=== PATIENT | male | born 1945 | race Caucasian/White ===

== ENCOUNTER → 2019-10-13 08:24 | Outpatient (BNVA) | payer OTHER, SELFPAY | PROVIDERS: Family Provider Internal Medicine; PCP Emergency Medicine Emergency Medical Services; Referring Provider Emergency Medicine Emergency Medical Services; Visit Provider Specialist | DX: G30.9 Alzheimer's disease, unspecified (principal); R29.90 Unspecified symptoms and signs involving the nervous system; F02.80 Dementia in other diseases classified elsewhere, unspecified severity, without behavioral disturbance, psychotic disturbance, mood disturbance, and anxiety; G80.9 Cerebral palsy, unspecified; Z86.73 Personal history of transient ischemic attack (TIA), and cerebral infarction without residual deficits; I65.23 Occlusion and stenosis of bilateral carotid arteries; R41.89 Other symptoms and signs involving cognitive functions and awareness; Z87.891 Personal history of nicotine dependence | CPT/HCPCS: 96116; 99204 ==

== ENCOUNTER 2019-11-24 08:31 | Outpatient (CLI) | payer OTHER, SELFPAY ==
--- NOTE | 2019-11-24 08:41 | USCV_ITS ---
JanRoss sosa Age: 74 Gender: M : 1945 Exam Date: 11/24/2019 09:23 Ordering Phys: Jose Bernardo DO Technologist: Jean Carlos Arias Exam Location: [facility] [place] Indication: SCREENING HISTORY: Diameter (cm) AP x Transverse x Length Velocity (cm/s) Waveform Prox Aorta: 1.71 x 2.51 x 55.50 Mid Aorta: 2.16 x 2.90 x 52.60 Distal Aorta: 3.04 x 3.13 x 46.10 Right Iliac Prox: 1.07 x 1.07 x 99.90 Left Iliac Prox: 0.83 x 1.16 x 90.50 Stent Prox Landing x x Aneurysmal Sac Max x x Lt Lat Sac Dim Rt Lat Sac Dim Stent Dist Landing x x Right Iliac Stent x x Left Iliac Stent x x Right Renal Art Left Renal Art FINDINGS: Moderate diffuse plaques in the abdominal aorta Fusiform aneurysm in the infrarenal segment of the aorta Normal Doppler flow velocities in the aorta and iliac arteries. 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
== END 2019-11-24 08:32 | disposition home or self-care (01) ==
LOC: US 08:33
PROVIDERS: Family Provider Emergency Medicine Emergency Medical Services; PCP Emergency Medicine Emergency Medical Services; Visit Provider Emergency Medicine Emergency Medical Services
DX: Z13.6 Encounter for screening for cardiovascular disorders (principal); I71.4 Abdominal aortic aneurysm, without rupture
CPT/HCPCS: 76706

== ENCOUNTER → 2020-01-06 14:31 | Outpatient (BNVA) | payer OTHER, SELFPAY | PROVIDERS: Family Provider Emergency Medicine Emergency Medical Services; PCP Emergency Medicine Emergency Medical Services; Visit Provider Specialist | DX: G30.9 Alzheimer's disease, unspecified (principal); F02.80 Dementia in other diseases classified elsewhere, unspecified severity, without behavioral disturbance, psychotic disturbance, mood disturbance, and anxiety; Z87.891 Personal history of nicotine dependence | CPT/HCPCS: 96116; 99213 ==

== ENCOUNTER 2020-12-12 13:16 | Emergency (ER) | payer OTHER, SELFPAY ==
[2020-12-12 13:33] VITALS: BP 126/71; PULSE 94; RESP 17; TEMP 37; O2SAT 97; BMI 25.8
[2020-12-12 13:47] VITALS: PULSE 74
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
--- NOTE | 2020-12-12 13:47 | ECG_ITS ---
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 Measurements Intervals [place] Rate: 74 P: ID: QRS: 16 QRSD: 77 T: 30 QT: 376 QTc: 419 Interpretive Statements ATRIAL FIBRILLATION MODERATE ST DEPRESSION [0.05+ mV ST DEPRESSION] Compared to ECG 05/20/2015 09:22:00 No significant changes Electronically Signed On 12-12-2020 20:10:45 CDT by Evan Conner M.D. [id number]
--- NOTE | 2020-12-12 13:47 | CT_ITS ---
WS: [id number] CT HEAD NONCONTRAST HISTORY: closed head injury TECHNIQUE: Contiguous axial imaging performed through the brain in 2.5 mm imaging. Bone and soft tiss ue windows. Sagittal and coronal reformats reviewed. All CT scans at [facility] use at ast one of these dose optimization techniques: automated exposure control; mA and/or kV adjustment pe r patient size (includes targeted exams where dose is matched to clinical indication); or iterative r econstruction. DLP: 877.89 mGy.cm COMPARISON: 05/19/2015 No acute intracranial hemorrhage, midline shift or mass effect. Moderate atrophy. Large LEFT frontal parietal infarct. Smaller infarct and volume loss in the posteri or RIGHT frontal lobe. Smaller infarct in the anterior frontal lobes bilaterally. Small bilateral inf arcts in the cerebellum, LEFT greater than RIGHT. Lacunar infarct in the LEFT external capsule. Ventricles: Normal size with no hydrocephalus. Paranasal sinuses: As visualized are clear. Mastoid air cells: Well pneumatized. Calvarium and scalp: Skull is intact with no soft tissue edema or swelling. CT/CT head wo con* [id number] IMPRESSION: 1. No acute intracranial hemorrhage or edema. 2. 

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
[2020-12-12 14:47] LABS: Basophils # 0.1 10^3/uL (0.0-0.1); Basophils % 0.7 %; Eosinophils # 0.4 10^3/uL (0.0-0.8); Eosinophils % 3.2 %; Hematocrit 43.7 % (42.0-52.0); Lymphocytes # 1.2 10^3/uL (0.8-4.8); Lymphocytes % 11.3 %; Mean Corpuscular Volume 96.9 fL (80-94); Mean Platelet Volume 11.6 fL (7.4-10.4); Monocytes # 0.8 10^3/uL (0.2-0.9); Monocytes % 7.2 %; Neutrophils # 8.46 10^3/uL (1.8-7.7); Neutrophils % 77.1 %; Nucleated Red Blood Cells % 0 %; Platelet Count 200 10^3/cmm (130-400); Red Blood Count 4.51 10^6/uL (4.1-5.3); Red Cell Distribution Width 14.6 % (12.1-15.1)
--- NOTE | 2020-12-12 15:09 | PC.PHAR ---
pt unable to verify medications-pts family states the pt has a nurse set up his medications-medications entered are meds that were on pts med list from [facility]-STILL WAITING FOR [facility] L[facility]
[2020-12-12 15:29] LABS: Alanine Aminotransferase 14 U/L (0-41); Albumin Level 4.3 g/dL (3.5-5.2); Alkaline Phosphatase 69 IU/L (40-130); Blood Urea Nitrogen 18 mg/dL (8-23); Carbon Dioxide 24 mmol/L (22-29); Chloride 106 mmol/L (98-107); Globulin 3.3 g/dL (1.3-4.6); Glucose 125 mg/dL (65-115); Osmolality Calculated 295 mOsm/kg (285-295); Sodium 141 mmol/L (136-145); Total Bilirubin 0.4 mg/dL (0.15-1.2); Total Protein 7.6 g/dL (6.6-8.7)
[2020-12-12 15:50] LABS: Anion Gap 15.3 (5-19); Aspartate Amino Transferase 23 U/L (0-40); Potassium 4.3 mmol/L (3.5-5.1)
[2020-12-12] MEDS: iohexol 300 mg/mL 100 mL Btl IV (15:54)
[2020-12-12 16:01] LABS: INR 1.23 (0.8-1.2)
[2020-12-12 16:41] VITALS: BP 118/90; PULSE 69; RESP 21; O2SAT 96
[2020-12-12 16:51] LABS: Add Urine Microscopic? NO; Charge for UA Resulting for Rev
[2020-12-12 17:00] LABS: Bilirubin Urine Neg (Negative); Blood Urine Neg (Negative); Glucose Urine UA Norm (Normal); Ketones Urine Negative (Negative); Leukocyte Esterase Urine Negative (Negative); Nitrate Urine Negative (Negative); Protein Urine Neg (Negative); Urine Appearance Clear (CLEAR); Urine Color Yellow (Yellow); Urobilinogen Urine Norm (Negative); pH Urine 7 (5-7)
[2020-12-12 18:00] VITALS: BP 128/78; PULSE 68; RESP 24; O2SAT 98
[2020-12-12 18:02] VITALS: BP 128/78; PULSE 68; RESP 24; O2SAT 98
--- NOTE | 2020-12-13 08:48 | DCPLANNER ---
manager wind had message to schedule a follow up appointment for patient with ENT, Dr. Courtney. Patient has [facility] insurance, upper caser called the office of Dr. Courtney to confirm if physician was in network with [facility]. manager wind was told that patient is not in network with the [facility] at this time. manager wind called patient, and spoke with his sister. manager wind asked if patient had another insurance that he would like to use, and see Dr. Courtney, or use his VA insurance and see Dr. Holley. manager wind was told that patient wants to use his VA and see Dr. Holley. manager wind called the office of Dr. Holley, faxed patients information to the office of Dr. Holley. A follow up appointment was scheduled for today Sunday, December 13, 2020 at 1:40. manager wind called and informed patients sister of the scheduled appointment. manager wind also sent patients information over a secure email to Lucie with [facility], so that authorization process could be started.
--- NOTE | 2020-12-13 11:10 | DCPLANNER ---
wireless construction manager also had message to schedule a follow up appointment for patient with Dr. Lopez, at [facility] for pulmonlogy. wireless construction manager called [facility], spoke with Lesly, gave clinic patients information. A follow up appointment was scheduled for Saturday, December 19, 2020 at 8:[address] Lopez. wireless construction manager called patients sister, gave her the appointment information. wireless construction manager also emailed patients information to December with [facility].
--- NOTE | 2020-12-14 15:23 | DCPLANNER ---
Patient had a follow up appointment scheduled for 12.13.[address] Holley - patient did attend appointment.
--- NOTE | 2020-12-27 15:20 | DCPLANNER ---
Patient had a follow up appointment scheduled for 12.19.20 with [facility] with lawrence Jalloh - patient did attend appointment.
== END 2020-12-12 18:03 | disposition home or self-care (01) ==
PROVIDERS: Emergency Provider Family Medicine; PCP Emergency Medicine Emergency Medical Services
DX: S10.93XA Contusion of unspecified part of neck, initial encounter (principal); Z79.01 Long term (current) use of anticoagulants; I10 Essential (primary) hypertension; E78.5 Hyperlipidemia, unspecified; Z87.891 Personal history of nicotine dependence; V89.2XXA Person injured in unspecified motor-vehicle accident, traffic, initial encounter
CPT/HCPCS: 36415; 70450; 70491; 71045; 72125; 80053; 81003; 85025; 85610; 93005; 99284; Q9967

== ENCOUNTER → 2020-12-21 13:27 | Outpatient (BNVA) | payer OTHER, SELFPAY | PROVIDERS: PCP Emergency Medicine Emergency Medical Services; Visit Provider Specialist | DX: G30.9 Alzheimer's disease, unspecified (principal); F02.80 Dementia in other diseases classified elsewhere, unspecified severity, without behavioral disturbance, psychotic disturbance, mood disturbance, and anxiety; Z87.891 Personal history of nicotine dependence | CPT/HCPCS: 99214 ==

== ENCOUNTER 2020-12-26 14:22 | Outpatient (CLI) | payer OTHER, SELFPAY ==
--- NOTE | 2020-12-26 15:00 | CT_ITS ---
WS: [id number] Exam: CT chest wo con [id number] Date/Time of Exam: 12/26/2020 2:49 PM Reason For Exam: Hilar lymphadenopathy DLP: 897.[address] scans at [facility] use at least one of these dose optimization techniques: automat ed exposure control; mA and/or kV adjustment per patient size (includes targeted exams where dose is matched to clinical indication); or iterative reconstruction. The lungs are fully expanded. There is hyperinflation with emphysematous changes noted. Mild infiltra te in the superior segment of the right lower lobe which may represent pneumonia or chronic change. T he airway is patent. 6.6 mm noncalcified pleural-based nodule in the posterior basal segment of the r ight lower lobe. There are several mildly prominent mediastinal lymph nodes. The largest measuring ab out 1.1 cm at greatest short axis dimension. There is also an enlarged right subpectoral lymph node m easuring 1 cm greatest short axis dimension. No axillary lymphadenopathy is seen. The thoracic aorta is not dilated. Triple vessel coronary artery calcification noted. No pleural or pericardial effusion seen. Large hiatal hernia. CT sections of the upper abdomen demonstrate no lymphadenopathy or mass. No destructive bone lesions are seen. Normal adrenal glands. No destructive bone lesions are chest wa ll defects. CT/CT chest wo con [id number] IMPRESSION: 1. Mild mediastinal and right subpectoral lymphadenopathy. The largest nodes me asure slightly over 1 cm greatest short axis dimension. 2. Mild infiltrate in the superior segment of the right lower lobe that may rep resent pneumonia or chronic change. 3. Pulmonary hyperinflation and emphysematous changes. 4. 6.6 mm noncalcified pleural-based nodule in the posterior basal segment of t he right lower lobe. Six-month follow-up might be considered for surveillance. 5. Large hiatal hernia.
== END 2020-12-26 14:23 | disposition home or self-care (01) ==
PROVIDERS: PCP Emergency Medicine Emergency Medical Services; Visit Provider Internal Medicine Critical Care Medicine
DX: R59.0 Localized enlarged lymph nodes (principal); K44.9 Diaphragmatic hernia without obstruction or gangrene; R91.1 Solitary pulmonary nodule; R91.8 Other nonspecific abnormal finding of lung field
CPT/HCPCS: 71250

== ENCOUNTER → 2021-06-19 10:48 | Outpatient (BNVA) | payer OTHER, SELFPAY | PROVIDERS: PCP Emergency Medicine Emergency Medical Services; Visit Provider Specialist | DX: G30.9 Alzheimer's disease, unspecified (principal); F02.80 Dementia in other diseases classified elsewhere, unspecified severity, without behavioral disturbance, psychotic disturbance, mood disturbance, and anxiety; F81.9 Developmental disorder of scholastic skills, unspecified; G80.9 Cerebral palsy, unspecified; Z87.891 Personal history of nicotine dependence | CPT/HCPCS: 99213 ==

== ENCOUNTER 2021-11-09 09:11 | Outpatient (CLI) | payer OTHER, SELFPAY ==
--- NOTE | 2021-11-09 09:33 | USCV_ITS ---
Ross Montoya Age: 76 Gender: M : 1945 Exam Date: 11/09/2021 09:59 Ordering Phys: Jose Bernardo DO Technologist: Erik Nolasco [place] [facility] [place]: AAA HISTORY: Diameter (cm) AP x Transverse x Length Velocity (cm/s) Waveform Prox Aorta: 2.32 x 2.29 x 75.20 Mid Aorta: 2.57 x 2.74 x 71.90 Distal Aorta: 3.01 x 3.29 x 43.00 Right Iliac Prox: 0.65 x 0.97 x 198.20 Left Iliac Prox: 0.75 x 0.87 x 137.20 Stent Prox Landing x x Aneurysmal Sac Max x x Lt Lat Sac Dim Rt Lat Sac Dim Stent Dist Landing x x Right Iliac Stent x x Left Iliac Stent x x Right Renal Art Left Renal Art FINDINGS: Comparison:. 11/24/19. A fusiform abdominal aortic aneurysm is noted with a maximal diameter of 3.3 cm. Minimal increase in size as compared to the prior exam. There are no findings to suggest ruthere is no evidence of a right common iliac artery aneurysm. There is no evidence of a left common iliac artery aneurysm. pture of the abdominal aortic aneurysm. Mild atherosclerosis. CONCLUSIONS AAA with minimal progression by 2 mm since the prior exam. Dr. Mnadi Jacobs DO (Electronically Signed) Final Date: 09 November 2021 10:30 S
== END 2021-11-09 09:12 | disposition home or self-care (01) ==
LOC: RAD 09:19
PROVIDERS: PCP Emergency Medicine Emergency Medical Services; Visit Provider Emergency Medicine Emergency Medical Services
DX: I71.4 Abdominal aortic aneurysm, without rupture (principal)
CPT/HCPCS: 93978

== ENCOUNTER → 2022-03-19 09:42 | Outpatient (BNVA) | payer OTHER, SELFPAY | PROVIDERS: PCP Emergency Medicine Emergency Medical Services; Visit Provider Internal Medicine Critical Care Medicine | DX: J44.9 Chronic obstructive pulmonary disease, unspecified (principal); R59.0 Localized enlarged lymph nodes; R91.1 Solitary pulmonary nodule; G30.9 Alzheimer's disease, unspecified; F02.80 Dementia in other diseases classified elsewhere, unspecified severity, without behavioral disturbance, psychotic disturbance, mood disturbance, and anxiety; Z87.891 Personal history of nicotine dependence; Z79.01 Long term (current) use of anticoagulants | CPT/HCPCS: 99214 ==

== ENCOUNTER → 2022-06-18 10:57 | Outpatient (BNVA) | payer OTHER, SELFPAY | PROVIDERS: PCP Emergency Medicine Emergency Medical Services; Visit Provider Specialist | DX: G30.9 Alzheimer's disease, unspecified (principal); F02.80 Dementia in other diseases classified elsewhere, unspecified severity, without behavioral disturbance, psychotic disturbance, mood disturbance, and anxiety | CPT/HCPCS: 99213 ==

== ENCOUNTER → 2022-07-10 10:01 | Outpatient (BNVA) | payer OTHER, SELFPAY | PROVIDERS: PCP Emergency Medicine Emergency Medical Services; Visit Provider Internal Medicine Cardiovascular Disease | DX: I48.91 Unspecified atrial fibrillation (principal); Z79.01 Long term (current) use of anticoagulants; J44.9 Chronic obstructive pulmonary disease, unspecified; E78.2 Mixed hyperlipidemia; I10 Essential (primary) hypertension; Z86.73 Personal history of transient ischemic attack (TIA), and cerebral infarction without residual deficits; I65.23 Occlusion and stenosis of bilateral carotid arteries; I71.30 Abdominal aortic aneurysm, ruptured, unspecified; Z87.891 Personal history of nicotine dependence | CPT/HCPCS: 93005; 99214 ==

== ENCOUNTER → 2022-09-27 13:54 | Outpatient (BNVA) | payer OTHER, SELFPAY | PROVIDERS: PCP Emergency Medicine Emergency Medical Services; Referring Provider Emergency Medicine Emergency Medical Services; Visit Provider Dermatology | DX: D48.9 Neoplasm of uncertain behavior, unspecified (principal) | CPT/HCPCS: 88305 ==

== ENCOUNTER → 2022-12-17 10:26 | Outpatient (BNVA) | payer OTHER, SELFPAY | PROVIDERS: PCP Emergency Medicine Emergency Medical Services; Visit Provider Internal Medicine Pulmonary Disease | DX: J44.9 Chronic obstructive pulmonary disease, unspecified (principal); R59.0 Localized enlarged lymph nodes; R91.1 Solitary pulmonary nodule; G30.9 Alzheimer's disease, unspecified; F02.80 Dementia in other diseases classified elsewhere, unspecified severity, without behavioral disturbance, psychotic disturbance, mood disturbance, and anxiety; Z87.891 Personal history of nicotine dependence | CPT/HCPCS: 99214 ==

== ENCOUNTER 2023-01-02 13:39 | Outpatient (CLI) | payer OTHER, SELFPAY ==
--- NOTE | 2023-01-02 13:30 | CTR_ITS ---
PROCEDURE INFORMATION: Exam: CT Chest Without Contrast; Diagnostic Exam date and time: 01/02/2023 1:51 PM Age: 77 years old Clinical indication: Condition or disease; Lung condition and disease; Pulmonary nodule, solitary; Additional info: Follow up lung nodule, CT chest to follow-up on lung nodule TECHNIQUE: Imaging protocol: Diagnostic computed tomography of the chest without contrast. Radiation optimization: All CT scans at this facility use at least one of these dose optimization techniques: automated exposure control; mA and/or kV adjustment per patient size (includes targeted exams where dose is matched to clinical indication); or iterative reconstruction. REPORTING DATA: Count of CT and Cardiac NM exams in prior 12 months: This patient has received 0 known CTs and 0 known cardiac nuclear medicine studies in the 12 months prior to the current study. COMPARISON: CT chest wo con [id number] 12/26/2020 3:00 PM RADIATION DOSE METRICS: Total DLP (mGy-cm): 236.65 FINDINGS: Lungs: COPD with diffuse emphysematous changes. There are scattered small circumscribed noncalcified pulmonary nodules measuring up to 6 mm stable from previous exam. There are no new nodules detected. There are mild interstitial changes consisting of subpleural reticulation without significant architectural distortion or honeycombing relatively stable that may be due to idiopathic interstitial lung disease (NSIP). Pleural spaces: Unremarkable. No pneumothorax. No pleural effusion. Heart: Heart is mildly enlarged and appears slightly increased in size from previous exam. Extensive calcification of coronary arteries. No significant pericardial effusion. Lymph nodes: Mild mediastinal lymphadenopathy relatively stable from previous exam, likely benign. Vasculature: Unremarkable. No aortic aneurysm. Diaphragm: There is a large size hiatal hernia, unchanged. Bones/joints: Moderate degenerative changes throughout the mid lower thoracic spine. No acute bony abnormalities. Soft tissues: Unremarkable. CT/CT chest wo con [id number] IMPRESSION: 1. Stable small pulmonary nodules measuring up to 6 mm consistent with benign etiology. No new nodules appreciated. 2. Mild mediastinal lymphadenopathy unchanged and likely benign in nature. 3. COPD with mild chronic interstitial lung changes suggestive of NSIP, stable. 4. Mild cardiomegaly with diffuse calcification of coronary arteries. 5. Large hiatal hernia unchanged. COMMENTS: In the absence of a history or active diagnosis of lung cancer, it is recommended that this patient with emphysema be evaluated for enrollment in a low dose CT lung cancer screening program.
== END 2023-01-02 13:40 | disposition home or self-care (01) ==
LOC: RAD 13:42
PROVIDERS: PCP Emergency Medicine Emergency Medical Services; Visit Provider Internal Medicine Pulmonary Disease
DX: J44.9 Chronic obstructive pulmonary disease, unspecified (principal); R91.1 Solitary pulmonary nodule; I51.7 Cardiomegaly; K44.9 Diaphragmatic hernia without obstruction or gangrene
CPT/HCPCS: 71250

== ENCOUNTER → 2023-01-22 09:53 | Outpatient (BNVA) | payer OTHER, SELFPAY | PROVIDERS: PCP Emergency Medicine Emergency Medical Services; Visit Provider Internal Medicine Cardiovascular Disease | DX: I48.91 Unspecified atrial fibrillation (principal); I10 Essential (primary) hypertension; G30.9 Alzheimer's disease, unspecified; E78.2 Mixed hyperlipidemia; Z86.73 Personal history of transient ischemic attack (TIA), and cerebral infarction without residual deficits; I71.40 Abdominal aortic aneurysm, without rupture, unspecified; Z87.891 Personal history of nicotine dependence | CPT/HCPCS: 36415; 80048; 85025; 99214 ==

== ENCOUNTER 2023-02-06 12:11 | Emergency (ER) | payer OTHER, SELFPAY ==
[2023-02-06 12:17] VITALS: BP 142/78; PULSE 87; RESP 17; TEMP 37; O2SAT 95; BMI 29.2
--- NOTE | 2023-02-06 12:26 | XRR_ITS ---
PROCEDURE INFORMATION: Exam: XR Lumbosacral Spine Exam date and time: 02/06/2023 12:55 PM Age: 78 years old Clinical indication: Injury or trauma; Fall; Blunt trauma (contusions or hematomas) TECHNIQUE: Imaging protocol: Radiologic exam of the lumbosacral spine. Views: 2 or 3 views. COMPARISON: No relevant prior studies available. FINDINGS: Bones/joints: Osteopenia and osteoarthritis is seen. No acute fracture. Normal alignment. Soft tissues: Unremarkable XR/XR lumbar spine 2-3V* [id number] IMPRESSION: 1. No acute findings. 2. Osteopenia and osteoarthritis
--- NOTE | 2023-02-06 12:26 | XRR_ITS ---
PROCEDURE INFORMATION: Exam: XR Right Ribs with PA Chest Exam date and time: 02/06/2023 12:55 PM Age: 78 years old Clinical indication: Injury or trauma; Fall; Rib area; Blunt trauma (contusions or hematomas) TECHNIQUE: Imaging protocol: Radiologic exam of the right ribs with PA chest. Views: 3 views COMPARISON: CT chest con [id number] 01/02/2023 1:51 PM FINDINGS: Lungs: Unremarkable. No consolidation. Pleural spaces: Unremarkable. No pleural effusion. No pneumothorax. Heart/Mediastinum: Unremarkable. No cardiomegaly. Bones/joints: Unremarkable. XR/XR ribs RT mn 3V w CXR1V [id number] IMPRESSION: No acute findings.
--- NOTE | 2023-02-06 12:26 | XRR_ITS ---
PROCEDURE INFORMATION: Exam: XR Thoracic Spine Exam date and time: 02/06/2023 12:55 PM Age: 78 years old Clinical indication: Injury or trauma; Fall; Blunt trauma (contusions or hematomas) TECHNIQUE: Imaging protocol: Radiologic exam of the thoracic spine. Views: 3 views. COMPARISON: CT chest wo con [id number] 01/02/2023 1:51 PM FINDINGS: Bones/joints: Generalized osteoarthritis and osteopenia is seen. There is decreased vertebral height involving the T11 and T12 vertebral bodies consistent with compression fractures. No acute fracture. Normal alignment. Soft tissues: Unremarkable. XR/XR thoracic spine 3V* [id number] IMPRESSION: 1. Osteopenia and osteoarthritis 2. Compression fractures T11 and T12 vertebral bodies 3. Otherwise No acute findings.
[2023-02-06 12:42] LABS: Basophils % 0.4 %; Eosinophils # 0.2 10^3/uL (0.0-0.8); Eosinophils % 1.5 %; Hematocrit 44.1 % (42.0-52.0); Hemoglobin 14.3 g/dL (11.7-16.6); Lymphocytes # 2.2 10^3/uL (0.8-4.8); Mean Corpuscular HGB Conc 32.4 g/dL (30.0-36.0); Mean Corpuscular Hemoglobin 32.7 pg (28.0-34.0); Mean Corpuscular Volume 100.9 fl (80-94); Mean Platelet Volume 11.1 fL (7.4-10.4); Monocytes % 9.2 %; Neutrophils # 7.06 10^3/uL (1.8-7.7); Neutrophils % 67.5 %; Nucleated Red Blood Cells % 0 %; Platelet Count 183 10^3/cmm (130-400); Red Blood Count 4.37 10^6/uL (4.1-5.3); Red Cell Distribution Width 12.7 % (12.1-15.1); White Blood Count 10.5 10^3/uL (4.0-10.0)
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
[2023-02-06 13:02] LABS: Anion Gap 17.6 (5-19); Blood Urea Nitrogen 12 mg/dL (8-23); Calcium 9.6 mg/dL (8.5-10.5); Carbon Dioxide 23 mmol/L (22-29); Chloride 103 mmol/L (98-107); Glucose 124 mg/dL (65-115); Osmolality Calculated 291 mOsm/kg (285-295); Potassium 3.6 mmol/L (3.5-5.1); Sodium 140 mmol/L (136-145)
[2023-02-06 14:33] VITALS: BP 119/83; PULSE 67; RESP 16; O2SAT 98
--- NOTE | 2023-02-06 15:41 | DCPLANNER ---
Addendum entered by Liliana Yu 02/08/23 10:20: Patient had a follow up appointment scheduled with ortho - patient did attend appointment. Addendum entered by Liliana Yu 02/07/23 11:19: managing manager received the following message from the ortho clinic regarding follow up appointment: attempt made to contact patient - left vm and mailed letter to call our clinic to schedule - have sent a msg to nancy VALDES to f/u on auth Original Note: managing manager had message to schedule a follow up appointment for patient with ortho. managing manager sent patients information the front office staff at ortho. Patients information will be printed and reviewed. Clinic will call patient with appointment information.
== END 2023-02-06 14:34 | disposition home or self-care (01) ==
PROVIDERS: Emergency Provider Family Medicine; PCP Emergency Medicine Emergency Medical Services
DX: S22.080A Wedge compression fracture of T11-T12 vertebra, initial encounter for closed fracture (principal); Z87.891 Personal history of nicotine dependence; Z86.73 Personal history of transient ischemic attack (TIA), and cerebral infarction without residual deficits; I10 Essential (primary) hypertension; E78.5 Hyperlipidemia, unspecified; F03.90 Unspecified dementia, unspecified severity, without behavioral disturbance, psychotic disturbance, mood disturbance, and anxiety; W19.XXXA Unspecified fall, initial encounter
CPT/HCPCS: 36415; 71101; 72072; 72100; 80048; 85025; 99283

== ENCOUNTER → 2023-02-07 15:15 | Outpatient (BNVA) | payer OTHER, SELFPAY | PROVIDERS: PCP Emergency Medicine Emergency Medical Services; Visit Provider Physician Assistant | DX: S22.000A Wedge compression fracture of unspecified thoracic vertebra, initial encounter for closed fracture (principal); W19.XXXA Unspecified fall, initial encounter | CPT/HCPCS: 99203 ==

== ENCOUNTER 2023-02-07 16:24 | Outpatient (CLI) | payer OTHER, SELFPAY | END 2023-02-07 16:25 | disposition home or self-care (01) | LOC: SPT 16:25 | PROVIDERS: PCP Emergency Medicine Emergency Medical Services; Visit Provider Physician Assistant | DX: Z46.89 Encounter for fitting and adjustment of other specified devices (principal); S22.000D Wedge compression fracture of unspecified thoracic vertebra, subsequent encounter for fracture with routine healing; X58.XXXD Exposure to other specified factors, subsequent encounter | CPT/HCPCS: 97760; L0456 ==

== ENCOUNTER 2023-02-11 09:07 | Outpatient (CLI) | payer OTHER, SELFPAY ==
--- NOTE | 2023-02-11 09:15 | USCV_ITS ---
Ross Montoya Age: 78 Gender: M : 1945 Exam Date: 02/11/2023 09:29 Ordering Phys: Phill Perez MD ([email or web address]) Technologist: Erik Nolasco Exam Location: [facility] [place] Indication: AAA HISTORY: Diameter (cm) AP x Transverse x Length Velocity (cm/s) Waveform Prox Aorta: 2.46 x 2.12 x 69.40 Mid Aorta: 2.75 x 2.93 x 44.30 Distal Aorta: 3.14 x 3.17 x 25.50 Right Iliac Prox: 0.86 x 1.18 x 171.90 Left Iliac Prox: 0.97 x 1.16 x 100.00 Stent Prox Landing x x Aneurysmal Sac Max x x Lt Lat Sac Dim Rt Lat Sac Dim Stent Dist Landing x x Right Iliac Stent x x Left Iliac Stent x x Right Renal Art Left Renal Art FINDINGS: Comparison:. 11/09/21. A fusiform abdominal aortic aneurysm is noted with a maximal diameter of 3.2 cm. No evidence of periaortic fluid is detected. Stable, non progression. Atherosclerotic plaque is noted in the abdominal aorta. There is evidence of atherosclerotic plaque no significan stenosis in the right common iliac artery. There is evidence of atherosclerotic plaque no significan stenosis in the left common iliac artery. CONCLUSIONS Stable 3.2 cm AAA, since 11/09/21. Dr. Mandi Jacobs DO (Electronically Signed) Final Date: 11 February 2023 10:10 S
== END 2023-02-11 09:08 | disposition home or self-care (01) ==
LOC: RAD 09:08
PROVIDERS: PCP Emergency Medicine Emergency Medical Services; Visit Provider Internal Medicine Cardiovascular Disease
DX: I71.40 Abdominal aortic aneurysm, without rupture, unspecified (principal); I10 Essential (primary) hypertension
CPT/HCPCS: 36415; 80048; 85025; 93978

== ENCOUNTER 2023-03-20 07:56 | Outpatient (CLI) | payer OTHER, SELFPAY ==
--- NOTE | 2023-03-20 08:00 | NM_ITS ---
WS: [id number] NUCLEAR MEDICINE BONE SCAN Radiopharmaceutical: 24.0 Tc-99m MDP mCi IV Injection site: Antecubital Postinjection imaging delay: 1 hr CLINICAL INFORMATION: S22.000A - Wedge compression fracture of unspecified thor... COMPARISON: None. FINDINGS: Bone lesions: Punctate areas of radiotracer uptake in the RIGHT posterior 8th and 9th ribs. Tiny amou nt of radiotracer uptake in the adjacent 8th and 9th pedicles. Additional punctate focus of radiotrac er uptake in an anterior mid rib. Findings likely due to healing rib fractures. Findings not typical for metastatic disease. Mild thoracolumbar curve. Soft tissue contours: Normal. Kidneys: Radiotracer uptake in a presumed small RIGHT renal cyst. Other findings: Degenerative type uptake in both AC joints. NM/NM bone scan whole body* [id number] IMPRESSION: 1. No focal uptake in the T11 or T12 vertebral bodies in the area of previousl y described compression. 2. Punctate activity involving the RIGHT posterior 8th and 9th ribs with punct ate activity in the adjacent pedicles likely due to trauma and healing rib frac tures. 3. No other suspicious findings.
== END 2023-03-20 07:57 | disposition home or self-care (01) ==
LOC: RAD 07:57
PROVIDERS: PCP Emergency Medicine Emergency Medical Services; Visit Provider Orthopaedic Surgery
DX: S22.000A Wedge compression fracture of unspecified thoracic vertebra, initial encounter for closed fracture (principal); X58.XXXA Exposure to other specified factors, initial encounter
CPT/HCPCS: 78306; A9561

== ENCOUNTER → 2023-04-11 08:52 | Outpatient (BNVA) | payer OTHER, SELFPAY | PROVIDERS: PCP Emergency Medicine Emergency Medical Services; Visit Provider Orthopaedic Surgery | DX: S22.49XA Multiple fractures of ribs, unspecified side, initial encounter for closed fracture (principal); X58.XXXA Exposure to other specified factors, initial encounter | CPT/HCPCS: 99213 ==

== ENCOUNTER → 2023-05-15 09:52 | Outpatient (BNVA) | payer OTHER, SELFPAY | PROVIDERS: PCP Emergency Medicine Emergency Medical Services; Visit Provider Podiatrist Foot & Ankle Surgery | DX: L60.3 Nail dystrophy; L84 Corns and callosities; M20.41 Other hammer toe(s) (acquired), right foot; M20.42 Other hammer toe(s) (acquired), left foot; M21.611 Bunion of right foot; M21.612 Bunion of left foot; I73.9 Peripheral vascular disease, unspecified | CPT/HCPCS: 11056; 11721; 99204 ==

== ENCOUNTER → 2023-06-10 13:14 | Outpatient (BNVA) | payer OTHER, SELFPAY | PROVIDERS: PCP Emergency Medicine Emergency Medical Services; Visit Provider Dermatology | DX: D48.5 Neoplasm of uncertain behavior of skin (principal); L81.4 Other melanin hyperpigmentation; L57.0 Actinic keratosis; L82.1 Other seborrheic keratosis; L57.8 Other skin changes due to chronic exposure to nonionizing radiation; L98.8 Other specified disorders of the skin and subcutaneous tissue | CPT/HCPCS: 17000; 69100; 99213 ==

== ENCOUNTER → 2023-06-18 10:11 | Outpatient (BNVA) | payer OTHER, SELFPAY | PROVIDERS: PCP Emergency Medicine Emergency Medical Services; Visit Provider Specialist | DX: G30.9 Alzheimer's disease, unspecified (principal); F02.80 Dementia in other diseases classified elsewhere, unspecified severity, without behavioral disturbance, psychotic disturbance, mood disturbance, and anxiety | CPT/HCPCS: 99213 ==

== ENCOUNTER → 2023-07-17 12:40 | Outpatient (BNVA) | payer OTHER, SELFPAY | PROVIDERS: PCP Emergency Medicine Emergency Medical Services; Visit Provider Podiatrist Foot & Ankle Surgery | DX: L60.3 Nail dystrophy (principal); M20.41 Other hammer toe(s) (acquired), right foot; M20.42 Other hammer toe(s) (acquired), left foot; M21.611 Bunion of right foot; M21.612 Bunion of left foot; I73.9 Peripheral vascular disease, unspecified; Q82.8 Other specified congenital malformations of skin | CPT/HCPCS: 11721; 17110 ==

== ENCOUNTER → 2023-08-06 11:06 | Outpatient (BNVA) | payer OTHER, SELFPAY | PROVIDERS: PCP Emergency Medicine Emergency Medical Services; Visit Provider Internal Medicine Cardiovascular Disease | DX: I71.33 Infrarenal abdominal aortic aneurysm, ruptured (principal); I48.11 Longstanding persistent atrial fibrillation; I65.23 Occlusion and stenosis of bilateral carotid arteries; E78.2 Mixed hyperlipidemia; I10 Essential (primary) hypertension; G30.9 Alzheimer's disease, unspecified; F02.80 Dementia in other diseases classified elsewhere, unspecified severity, without behavioral disturbance, psychotic disturbance, mood disturbance, and anxiety; Z87.891 Personal history of nicotine dependence; Z79.01 Long term (current) use of anticoagulants | CPT/HCPCS: 99214 ==

== ENCOUNTER 2023-08-20 08:56 | Outpatient (CLI) | payer OTHER, SELFPAY ==
--- NOTE | 2023-08-20 09:15 | USCV_ITS ---
Ross Montoya Age: 78 Gender: M : 1945 Exam Date: 08/20/2023 09:07 Ordering Phys: Phill Perez MD ([email or web address]) Technologist: Tori Chávez Exam Location: [facility] – [place] Indication: CCA STENOSIS Risk Factors: Unknown Previous Vascular Surgery: None Right Brachial BP: / Left Brachial BP: / Right Left Velocity (cm/s) Spectral Plaque Velocity (cm/s) Spectral Plaque Syst/Diast Broadening Syst/Diast Broadening 70.30/ 11.30 Prox CCA 79.20 / 12.40 35.20/ 6.70 Mid CCA 50.90 / 16.00 29.50/ 6.80 Distal CCA 33.00 / 10.10 20.50/ 5.90 Prox ICA 36.30 / 13.40 27.10/ 12.90 Mid ICA 43.10 / 13.40 37.00/ 15.50 Distal ICA 39.10 / 16.20 45.00 ECA 48.60 1.05 ICA/CCA 0.85 Antegrade Vertebral Antegrade 29.40/ 6.90 cm/s 36.30/ 8.90 cm/s Tri Subclavian Tri 34.70 129.2 0 FINDINGS Minimal plaques at the bifurcations. Intimal thickening in the common carotid arteries bilaterally. Antegrade flow in the vertebral arteries bilaterally. Normal Doppler velocities in the external carotid, vertebral and subclavian arteries bilaterally CONCLUSIONS Minimal plaques at the bifurcations, bilaterally suggesting less than 50% stenosis Intimal thickening in the common carotid arteries bilaterally. No Significant stenosis in the proximal subclavian, external carotid and vertebral arteries, based on the above findings Dr Phill Perez MD [facility] (Electronically Signed) Final Date: 25 August 2023 16:37 S
== END 2023-08-20 08:57 | disposition home or self-care (01) ==
LOC: RAD 08:56
PROVIDERS: PCP Emergency Medicine Emergency Medical Services; Visit Provider Internal Medicine Cardiovascular Disease
DX: I77.9 Disorder of arteries and arterioles, unspecified (principal); I65.23 Occlusion and stenosis of bilateral carotid arteries
CPT/HCPCS: 93880

== ENCOUNTER → 2023-09-19 12:40 | Outpatient (BNVA) | payer OTHER, SELFPAY | PROVIDERS: PCP Emergency Medicine Emergency Medical Services; Visit Provider Internal Medicine Pulmonary Disease | DX: J44.9 Chronic obstructive pulmonary disease, unspecified (principal); R91.1 Solitary pulmonary nodule; G30.9 Alzheimer's disease, unspecified; F02.80 Dementia in other diseases classified elsewhere, unspecified severity, without behavioral disturbance, psychotic disturbance, mood disturbance, and anxiety; Z87.891 Personal history of nicotine dependence | CPT/HCPCS: 99214 ==

== ENCOUNTER → 2023-10-02 12:49 | Outpatient (BNVA) | payer OTHER, SELFPAY | PROVIDERS: PCP Emergency Medicine Emergency Medical Services; Visit Provider Podiatrist Foot & Ankle Surgery | DX: L60.3 Nail dystrophy (principal); M20.41 Other hammer toe(s) (acquired), right foot; M20.42 Other hammer toe(s) (acquired), left foot; M21.611 Bunion of right foot; M21.612 Bunion of left foot; I73.9 Peripheral vascular disease, unspecified; Q82.8 Other specified congenital malformations of skin | CPT/HCPCS: 11721; 17110 ==

== ENCOUNTER → 2023-11-27 13:42 | Outpatient (BNVA) | payer OTHER, SELFPAY | PROVIDERS: PCP Emergency Medicine Emergency Medical Services; Visit Provider Podiatrist Foot & Ankle Surgery | DX: L60.3 Nail dystrophy (principal); M20.41 Other hammer toe(s) (acquired), right foot; M20.42 Other hammer toe(s) (acquired), left foot; M21.611 Bunion of right foot; M21.612 Bunion of left foot; I73.9 Peripheral vascular disease, unspecified; Q82.8 Other specified congenital malformations of skin | CPT/HCPCS: 11721; 17110 ==

== ENCOUNTER → 2024-02-05 10:38 | Outpatient (BNVA) | payer OTHER, SELFPAY | PROVIDERS: PCP Emergency Medicine Emergency Medical Services; Visit Provider Internal Medicine Cardiovascular Disease | DX: I48.11 Longstanding persistent atrial fibrillation (principal); I71.43 Infrarenal abdominal aortic aneurysm, without rupture; I10 Essential (primary) hypertension; E78.2 Mixed hyperlipidemia; I65.23 Occlusion and stenosis of bilateral carotid arteries; I73.9 Peripheral vascular disease, unspecified; Z79.01 Long term (current) use of anticoagulants; Z87.891 Personal history of nicotine dependence | CPT/HCPCS: 99214 ==

== ENCOUNTER → 2024-02-12 13:56 | Outpatient (BNVA) | payer OTHER, SELFPAY | PROVIDERS: PCP Emergency Medicine Emergency Medical Services; Visit Provider Podiatrist Foot & Ankle Surgery | DX: L60.3 Nail dystrophy (principal); M20.41 Other hammer toe(s) (acquired), right foot; M20.42 Other hammer toe(s) (acquired), left foot; M21.611 Bunion of right foot; M21.612 Bunion of left foot; I73.9 Peripheral vascular disease, unspecified; Q82.8 Other specified congenital malformations of skin | CPT/HCPCS: 11721; 17110 ==

== ENCOUNTER 2024-02-25 13:41 | Outpatient (CLI) | payer OTHER, SELFPAY ==
--- NOTE | 2024-02-25 14:00 | USCV_ITS ---
Jan Ross Age: 79 Gender: M : 1945 Exam Date: 02/25/2024 13:47 Ordering Phys: Phill Perez MD ([email or web address]) Technologist: CT Exam Location: [facility] [place]ication: aaa HISTORY: Diameter (cm) AP x Transverse x Length Velocity (cm/s) Waveform Prox Aorta: 1.90 x 1.80 x 43.85 Mid Aorta: 2.10 x 2.10 x 0.00 Distal Aorta: 3.20 x 3.60 x 44.60 Right Iliac Prox: 0.41 x 0.72 x 145.40 Left Iliac Prox: 0.88 x 1.00 x 58.60 Stent Prox Landing x x Aneurysmal Sac Max x x Lt Lat Sac Dim Rt Lat Sac Dim Stent Dist Landing x x Right Iliac Stent x x Left Iliac Stent x x Right Renal Art Left Renal Art FINDINGS: CONCLUSIONS Distal AAA measuring 3.2 x 3.6cm AP x Trans. Moderate atheromatous disease Normal iliac arteries Adam Ruiz MD (Electronically Signed) Final Date: 25 February 2024 14:33 S
== END 2024-02-25 13:42 | disposition home or self-care (01) ==
LOC: RAD 13:42
PROVIDERS: PCP Emergency Medicine Emergency Medical Services; Visit Provider Internal Medicine Cardiovascular Disease
DX: I71.43 Infrarenal abdominal aortic aneurysm, without rupture (principal)
CPT/HCPCS: 93978

== ENCOUNTER 2024-03-26 10:51 | Emergency (ER) | payer OTHER, MEDICARE, MEDICAID, SELFPAY ==
[2024-03-26 10:54] VITALS: BP 144/93; PULSE 101; RESP 18; TEMP 36.7; O2SAT 98
--- NOTE | 2024-03-26 10:57 | XR_ITS ---
WS: [id number] XR chest 1V portable [id number] REASON FOR EXAM: cp FINDINGS: Moderate tortuosity of the thoracic aorta. Large hiatal hernia. Mild cardiomegaly. Chronic reticular interstitial lung opacities most prominent in the subpleural region. Irregular aera tion of the lungs. No acute/subacute pulmonary parenchymal or pleural abnormality. Moderate osteoarthritis in the right shoulder joint. Moderate degenerative spondylosis in the thoraci c spine. XR/XR chest 1V portable [id number] IMPRESSION: No acute chest abnormality. Mild cardiomegaly. Large hiatal hernia. 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 All confirmed by previous CT of the chest 01/02/2023.
--- NOTE | 2024-03-26 10:57 | ECG_ITS ---
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 Measurements Intervals [place] Rate: 112 P: 0 GA: 0 QRS: 4 QRSD: 79 T: 4 QT: 318 QTc: 435 Interpretive Statements ATRIAL FIBRILLATION WITH RAPID VENTRICULAR RESPONSE LOW QRS VOLTAGE IN EXTREMITY LEADS [QRS DEFLECTION < 0.5 mV IN LIMB LEADS] ABNORMAL RHYTHM ECG Compared to ECG 12/12/2020 14:39:11 Low QRS voltage now present ST (T wave) deviation no longer present Electronically Signed On 03-27-2024 0:54:31 CDT by Phill Perez M.D. [id number]
--- NOTE | 2024-03-26 11:04 | W.ED.SOB ---
HPI - SOB/Dyspnea General: Chief Complaint: Shortness of Breath/Dyspnea Stated Complaint: SOB, CP Time Seen by Provider: 03/26/24 10:54 Source: patient and EMS Mode of arrival: EMS Limitations: altered mental status History of Present Illness: HPI Narrative: 79-year-old male with a history of dementia he is here from [facility]. EMS states the [facility] had told manage chest pain shortness of breath patient now denies that. He does have a history of A-fib he states he feels fine currently he is only oriented to self and that is his normal. Denies any cough or fever Associated symptoms: Reports chest pain; Deny abdominal pain, fever(s), nausea or vomiting Review of Systems Const: Denies: fever(s), chills, body aches or change in appetite ENMT: Denies: throat pain or dental pain Card: Reports: chest pain Resp: Reports: dyspnea GI: Denies: abdominal pain, nausea, vomiting or diarrhea Musc: Denies: neck pain or back pain Skin/Breast: Denies: rash Neuro: Denies: headache(s) PFSH ED PFSH: Medical History Atrial fibrillation History of CVA (cerebrovascular accident) Diverticulosis Stroke Anemia Hyperlipidemia HTN (hypertension) Surgical History S/P hernia repair History of colonoscopy (~2019) Family History Mother Diabetes Other Hypertension Denies family history of CAD (coronary artery disease) Clotting disorder Dementia Chronic kidney disease (CKD) Suicide Anesthesia complication Bleeding disorder Lung disease Cancer Stroke Social History Smoking and tobacco/nicotine status: former use of tobacco/nicotine Quit status (tobacco/nicotine): has quit using Year quit tobacco: 2012 Former quit date comment: Hx of 1PPD x 45 Years Second hand smoke exposure: No Alcohol intake: former Substance/Drug Use: never Caregiver/support person: No Lives independently: Yes Household members: none Marital status: Current occupational status: retired Do you think of yourself as: Straight/Heterosexual Current gender identity: Male Physical Exam Const: COMMON NORMALS: no acute distress, healthy appearing and alert ORIENTATION/CONSCIOUSNESS: Yes oriented to person; not oriented to place and not oriented to time HENMT: COMMON NORMALS: normocephalic and atraumatic HEAD & SCALP: normocephalic and atraumatic Eye: COMMON NORMALS: conjunctivae normal CONJUNCTIVA: Yes conjunctivae normal Neck/C-Spine: COMMON NORMALS: full ROM and supple Chest: COMMONS NORMALS: normal inspection of the chest Resp: COMMON NORMALS: normal respiratory effort, No retractions, No use of accessory muscles and clear to auscultation bilaterally AUSCULTATION: clear to auscultation bilaterally Cardio: COMMON NORMALS: No murmurs present (Cardio) RATE: tachycardic RHYTHM: abnormal rhythm irregularly irregular GI: COMMON NORMALS: Normal to inspection, nondistended, normoactive bowel sounds present, Soft to palpation, non-tender and no masses PALPATION: Yes Soft to palpation Extremity: COMMON NORMALS: normal to inspection and full ROM Neuro: COMMON NORMALS: moves all extremities and no focal motor deficits SENSORIUM/ORIENTATION: Yes alert, Yes oriented to person, No oriented to place and No oriented to time Psych: COMMON NORMALS: mental status grossly normal, Normal thought process present and cooperative THOUGHT PROCESS: Normal thought process present Skin: COMMON NORMALS: no rashes or lesions noted and no wounds GENERAL SKIN EXAM: no rashes or lesions noted Course Vital Signs: Vital signs: Vital Signs Temperature 98.1 F 03/26/24 10:54 Pulse Rate 81 03/26/24 11:54 Respiratory Rate 16 03/26/24 11:54 Blood Pressure 125/79 03/26/24 11:54 Pulse Oximetry 96 03/26/24 11:54 Oxygen Delivery Me thod Room Air 03/26/24 11:54 MDM - SOB/Dyspnea Medical Decision Making Patient presents for shortness of breath when he got here he complained of no dyspnea he is quite demented imaging blood work here is all normal he stable for discharge follow-up with PCP Medical Records I reviewed the patient's medical records. Lab Data I reviewed the patient's lab results. 03/26/24 10:43 03/26/24 10:43 Labs/Radiology: Radiology Impressions Chest X-Ray 03/26/24 10:57 IMPRESSION: No acute chest abnormality. Mild cardiomegaly. Large hiatal hernia. 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 All confirmed by previous CT of the chest 01/02/2023. Laboratory Results WBC 9.92 10^3/uL (3.29-11.43) 03/26/24 10:43 RBC 4.43 10^6/uL (3.85-5.65) 03/26/24 10:43 Hgb 14.30 g/dL (11.27-16.99) 03/26/24 10:43 Hct 42.7 % (37-53) 03/26/24 10:43 MCV 96.4 fl (82-101) 03/26/24 10:43 MCH 32.3 pg (27-33) 03/26/24 10:43 MCHC 33.5 g/dL (30-55) 03/26/24 10:43 RDW 12.6 % (12.1-15.1) 03/26/24 10:43 Plt Count 285 10^3/cmm (157-399) 03/26/24 10:43 MPV 11.9 fL (7.4-10.4) H 03/26/24 10:43 Neut % (Auto) 63.5 % 03/26/24 10:43 Lymph % (Auto) 20.4 % 03/26/24 10:43 [place] % (Auto) 10.2 % 03/26/24 10:43 Eos % (Auto) 4.8 % 03/26/24 10:43 Baso % (Auto) 0.4 % 03/26/24 10:43 Neut # (Auto) 6.30 10^3/uL (1.8-7.7) 03/26/24 10:43 Lymph # (Auto) 2.0 10^3/uL (0.8-4.8) 03/26/24 10:43 [place] # (Auto) 1.0 10^3/uL (0.2-0.9) H 03/26/24 10:43 Eos # (Auto) 0.5 10^3/uL (0.0-0.8) 03/26/24 10:43 Baso # (Auto) 0.0 10^3/uL (0.0-0.1) 03/26/24 10:43 Nucleated RBC % (auto) 0 % 03/26/24 10:43 Nucleated RBCs # 0.0 /100WBC 03/26/24 10:43 Sodium 140 mmol/L (136-145) 03/26/24 10:43 Potassium 4.0 mmol/L (3.5-5.1) 03/26/24 10:43 Chloride 102 mmol/L (98-107) 03/26/24 10:43 Carbon Dioxide 24 mmol/L (22-29) 03/26/24 10:43 Anion Gap 18.0 (5-19) 03/26/24 10:43 BUN 12 mg/dL (8-23) 03/26/24 10:43 Creatinine 0.9 mg/dL (0.7-1.2) 03/26/24 10:43 GFR Calculation Not Reportable 03/26/24 10:43 Glucose 126 mg/dL (65-115) H 03/26/24 10:43 Calculated Osmolality 291 mOsm/kg (285-295) 03/26/24 10:43 Calcium 9.6 mg/dL (8.5-10.5) 03/26/24 10:43 Total Bilirubin 0.8 mg/dL (0.15-1.2) 03/26/24 10:43 AST 19 U/L (0-40) 03/26/24 10:43 ALT 15 U/L (0-41) 03/26/24 10:43 Alkaline Phosphatase 71 U/L (40-130) 03/26/24 10:43 Troponin T Baseline 14 ng/L (0-15) 03/26/24 10:43 NT-Pro-B Natriuret Pep 1565 pg/mL (0-450) H 03/26/24 10:43 Total Protein 8.6 g/dL (6.6-8.7) 03/26/24 10:43 Albumin 4.1 g/dL (3.5-5.2) 03/26/24 10:43 Globulin 4.5 g/dL (1.3-4.6) 03/26/24 10:43 All radiology interpretation(s) finalized by discharge EKG Data EKG 1: I personally reviewed and interpreted this EKG as follows: EKG Interpretation Date: 03/26/24 EKG interpretation time: 11:10 Interpretation: afib with rv hr [address] elevation qrs 79 qtc 384 Discharge Plan Discharge Patient Disposition: Home Clinical Impression: Shortness of breath Condition: Stable Prescriptions: No Action cholecalciferol (vitamin D3) 2,000 unit tablet 2,000 unit PO DAILY budesonide-formoterol [Symbicort] 160-4.5 mcg/actuation HFA aerosol inhaler 2 puff inhalation BID Qty: 10.2 3RF donepezil 5 mg tablet 5 mg PO DAILY Qty: 90 3RF Eliquis 5 mg tablet 5 mg PO BID Qty: 180 2RF clotrimazole [Athlete's Foot (clotrimazole)] 1 % cream 1 applic topical BID calamine-zinc oxide Lotion 1 applic topical Q1H PRN Rx Instructions: while awake (DME) TLSO BRACE See Rx Instructions .Route .MEDSUPPLY Qty: 1 0RF Rx Instructions: As directed ProAir HFA 90 mcg/actuation HFA aerosol inhaler 2 puff INHALATION Q4H PRN (Reason: Shortness Of Breath) Qty: 8.5 3RF diazepam [Valium] 5 mg tablet 5 mg PO ONCE 1 Days Qty: 1 0RF tamsulosin 0.4 mg Capsule 0.4 mg PO QPM diltiazem HCl 120 mg Capsule,Ext.Rel 24h Degradable 120 mg PO DAILY pravastatin 20 mg Tablet 10 mg PO QPM pantoprazole 40 mg tablet,delayed release (DR/EC) 40 mg PO QPM hydrocodone-acetaminophen 5-325 mg tablet 1 tab PO Q6H PRN (Reason: pain) Qty: 15 0RF Discharge Orders: Discharge ED (Routine); Ordered 03/26/24 Ordered By: Yg Mcneal Referrals: Jose Bernardo DO [Primary Care Provider] - 4-7 days Discharge Diet: Advance as tolerated Discharge Activity: Resume usual activity Patient Instructions: Dyspnea (ED) Coding Level of Care Code ED [employer] Se[employer]olste[employer] for Adolfo Corbett
[2024-03-26 11:17] LABS: Basophils % 0.4 %; Eosinophils # 0.5 10^3/uL (0.0-0.8); Eosinophils % 4.8 %; Hematocrit 42.7 % (37-53); Lymphocytes % 20.4 %; Mean Corpuscular HGB Conc 33.5 g/dL (30-55); Mean Corpuscular Hemoglobin 32.3 pg (27-33); Mean Corpuscular Volume 96.4 fl (82-101); Mean Platelet Volume 11.9 fL (7.4-10.4); Monocytes % 10.2 %; Neutrophils % 63.5 %; Nucleated Red Blood Cells % 0 %; Platelet Count 285 10^3/cmm (157-399); Red Blood Count 4.43 10^6/uL (3.85-5.65); Red Cell Distribution Width 12.6 % (12.1-15.1); White Blood Count 9.92 10^3/uL (3.29-11.43)
[2024-03-26 11:28] VITALS: BP 144/93; PULSE 105; RESP 16; O2SAT 98
[2024-03-26 11:28] LABS: Troponin(5th) Baseline 14 ng/L (0-15)
[2024-03-26] MEDS: dilTIAZem 5 mg/mL SDV 5 mL 15 MG IVP (11:40)
[2024-03-26 11:43] LABS: Alanine Aminotransferase 15 U/L (0-41); Albumin Level 4.1 g/dL (3.5-5.2); Alkaline Phosphatase 71 U/L (40-130); Aspartate Amino Transferase 19 U/L (0-40); Blood Urea Nitrogen 12 mg/dL (8-23); Calcium 9.6 mg/dL (8.5-10.5); Carbon Dioxide 24 mmol/L (22-29); Chloride 102 mmol/L (98-107); Globulin 4.5 g/dL (1.3-4.6); Glucose 126 mg/dL (65-115); NT Pro B Type Natriuretic Pept 1565 pg/mL (0-450); Osmolality Calculated 291 mOsm/kg (285-295); Sodium 140 mmol/L (136-145); Total Bilirubin 0.8 mg/dL (0.15-1.2); Total Protein 8.6 g/dL (6.6-8.7)
[2024-03-26 11:54] VITALS: BP 125/79; PULSE 81; RESP 16; O2SAT 96
[2024-03-26 12:23] VITALS: BP 124/84; PULSE 84; RESP 16; TEMP 36.7; O2SAT 98
== END 2024-03-26 12:19 | disposition home or self-care (01) ==
PROVIDERS: Emergency Provider Emergency Medicine; PCP Emergency Medicine Emergency Medical Services
DX: R06.02 Shortness of breath (principal); I48.20 Chronic atrial fibrillation, unspecified; Z79.01 Long term (current) use of anticoagulants; Z87.891 Personal history of nicotine dependence; Z86.73 Personal history of transient ischemic attack (TIA), and cerebral infarction without residual deficits; E78.5 Hyperlipidemia, unspecified; I10 Essential (primary) hypertension
CPT/HCPCS: 71045; 80053; 83880; 84484; 85025; 93005; 96374; 99285; J3490

== ENCOUNTER → 2024-05-19 12:55 | Outpatient (BNVA) | payer OTHER, MEDICARE, MEDICAID, SELFPAY | PROVIDERS: PCP Emergency Medicine Emergency Medical Services; Visit Provider Podiatrist Foot & Ankle Surgery | DX: L60.3 Nail dystrophy (principal); I73.9 Peripheral vascular disease, unspecified; Q82.8 Other specified congenital malformations of skin | CPT/HCPCS: 11721; 17110 ==

== ENCOUNTER → 2024-06-15 13:00 | Outpatient (BNVA) | payer OTHER, MEDICARE, MEDICAID, SELFPAY | PROVIDERS: PCP Emergency Medicine Emergency Medical Services; Visit Provider Nurse Practitioner Family | DX: L81.4 Other melanin hyperpigmentation (principal); L82.1 Other seborrheic keratosis; L57.8 Other skin changes due to chronic exposure to nonionizing radiation; L98.8 Other specified disorders of the skin and subcutaneous tissue; L57.0 Actinic keratosis; L28.1 Prurigo nodularis; D18.01 Hemangioma of skin and subcutaneous tissue | CPT/HCPCS: 17000; 99213 ==

== ENCOUNTER → 2024-08-11 11:35 | Outpatient (BNVA) | payer OTHER, MEDICARE, MEDICAID, SELFPAY | PROVIDERS: PCP Emergency Medicine Emergency Medical Services; Visit Provider Internal Medicine Cardiovascular Disease | DX: I48.11 Longstanding persistent atrial fibrillation (principal); I10 Essential (primary) hypertension; E78.2 Mixed hyperlipidemia; I65.23 Occlusion and stenosis of bilateral carotid arteries; I71.33 Infrarenal abdominal aortic aneurysm, ruptured; Z87.891 Personal history of nicotine dependence; Z79.01 Long term (current) use of anticoagulants | CPT/HCPCS: 99214 ==

== ENCOUNTER → 2024-08-19 13:24 | Outpatient (BNVA) | payer OTHER, MEDICARE, MEDICAID, SELFPAY | PROVIDERS: PCP Emergency Medicine Emergency Medical Services; Visit Provider Podiatrist Foot & Ankle Surgery | DX: L60.3 Nail dystrophy (principal); I73.9 Peripheral vascular disease, unspecified; Q82.8 Other specified congenital malformations of skin | CPT/HCPCS: 11721; 17110 ==

== ENCOUNTER → 2024-11-17 10:54 | Outpatient (BNVA) | payer OTHER, SELFPAY | PROVIDERS: PCP Emergency Medicine Emergency Medical Services; Visit Provider Podiatrist Foot & Ankle Surgery | DX: I73.9 Peripheral vascular disease, unspecified (principal); L60.3 Nail dystrophy; L84 Corns and callosities; Q82.8 Other specified congenital malformations of skin; M20.41 Other hammer toe(s) (acquired), right foot; M20.42 Other hammer toe(s) (acquired), left foot; M21.611 Bunion of right foot; M21.612 Bunion of left foot; M21.41 Flat foot [pes planus] (acquired), right foot; M21.42 Flat foot [pes planus] (acquired), left foot | CPT/HCPCS: 11721; 17110; 99213 ==

== ENCOUNTER → 2025-02-16 10:29 | Outpatient (BNVA) | payer OTHER, SELFPAY | PROVIDERS: PCP Emergency Medicine Emergency Medical Services; Visit Provider Nurse Practitioner Family | DX: I65.23 Occlusion and stenosis of bilateral carotid arteries (principal); I73.9 Peripheral vascular disease, unspecified; I48.11 Longstanding persistent atrial fibrillation; Z79.01 Long term (current) use of anticoagulants; I71.43 Infrarenal abdominal aortic aneurysm, without rupture; E78.2 Mixed hyperlipidemia; Z86.73 Personal history of transient ischemic attack (TIA), and cerebral infarction without residual deficits; Z87.891 Personal history of nicotine dependence; I10 Essential (primary) hypertension | CPT/HCPCS: 99214 ==

== ENCOUNTER → 2025-04-20 10:29 | Outpatient (BNVA) | payer OTHER, SELFPAY | PROVIDERS: PCP Family Medicine Geriatric Medicine; Visit Provider Podiatrist Foot & Ankle Surgery | DX: E11.8 Type 2 diabetes mellitus with unspecified complications (principal); L60.3 Nail dystrophy; I73.9 Peripheral vascular disease, unspecified; Q82.8 Other specified congenital malformations of skin; L84 Corns and callosities; M20.41 Other hammer toe(s) (acquired), right foot; M20.42 Other hammer toe(s) (acquired), left foot; M21.611 Bunion of right foot; M21.612 Bunion of left foot; M21.41 Flat foot [pes planus] (acquired), right foot; M21.42 Flat foot [pes planus] (acquired), left foot | CPT/HCPCS: 11721; 17110 ==

== ENCOUNTER → 2025-06-22 08:39 | Outpatient (BNVA) | payer OTHER, SELFPAY | PROVIDERS: PCP Family Medicine Geriatric Medicine; Visit Provider Podiatrist Foot & Ankle Surgery | DX: E11.8 Type 2 diabetes mellitus with unspecified complications (principal); L60.3 Nail dystrophy; L84 Corns and callosities; I73.9 Peripheral vascular disease, unspecified; Q82.8 Other specified congenital malformations of skin; M20.41 Other hammer toe(s) (acquired), right foot; M20.42 Other hammer toe(s) (acquired), left foot; M21.611 Bunion of right foot; M21.612 Bunion of left foot; M21.41 Flat foot [pes planus] (acquired), right foot; M21.42 Flat foot [pes planus] (acquired), left foot | CPT/HCPCS: 11721; 17110 ==

== ENCOUNTER → 2025-07-08 15:34 | Outpatient (BNVA) | payer OTHER, SELFPAY | PROVIDERS: PCP Family Medicine Geriatric Medicine; Visit Provider Nurse Practitioner Family | DX: L57.0 Actinic keratosis (principal); L82.1 Other seborrheic keratosis; L98.8 Other specified disorders of the skin and subcutaneous tissue; L81.4 Other melanin hyperpigmentation; L57.8 Other skin changes due to chronic exposure to nonionizing radiation; D18.01 Hemangioma of skin and subcutaneous tissue | CPT/HCPCS: 99213 ==

== ENCOUNTER → 2025-08-31 09:19 | Outpatient (BNVA) | payer OTHER, SELFPAY | PROVIDERS: PCP Family Medicine Geriatric Medicine; Visit Provider Podiatrist Foot & Ankle Surgery | DX: E11.8 Type 2 diabetes mellitus with unspecified complications (principal); L60.3 Nail dystrophy; Q82.8 Other specified congenital malformations of skin; I73.9 Peripheral vascular disease, unspecified; L84 Corns and callosities; M20.41 Other hammer toe(s) (acquired), right foot; M20.42 Other hammer toe(s) (acquired), left foot | CPT/HCPCS: 11721; 17110 ==